=== PATIENT | female | born 1965 | race Two or more races ===

== ENCOUNTER 2023-07-20 12:02 | Emergency (ER) | payer SELFPAY ==
[~2023-07-20] VITALS: Ht 160 cm; Wt 90.0 kg
[2023-07-20 12:18] VITALS: BP 100/60; PULSE 99; RESP 18; TEMP 98.1
[2023-07-20] MEDS ORDERED: HYDROCODONE/ACETAMINOPHEN 5-325 MG TABLET PO ONE (14:00)
[2023-07-20] MEDS ORDERED: ACET-3385 PO (14:10)
[2023-07-20] MEDS ORDERED: IBUP-1492 PO (14:10)
== END 2023-07-20 14:21 | disposition home or self-care (01) ==
LOC: EMS 12:10
DX: S83.91XA Sprain of unspecified site of right knee, initial encounter (principal); X58.XXXA Exposure to other specified factors, initial encounter; Y93.89 Activity, other specified; Y92.89 Other specified places as the place of occurrence of the external cause; Y99.8 Other external cause status
CPT/HCPCS: 99283

== ENCOUNTER 2023-08-01 16:32 | Emergency (ER) | payer OTHER ==
[~2023-08-01] VITALS: Ht 160 cm; Wt 90.0 kg
[~2023-08-01 16:32] MED LIST: ACET-3385 PO; IBUP-1492 PO
[2023-08-01 16:41] VITALS: TEMP 98.3
[2023-08-01] MEDS ORDERED: ACETAMINOPHEN/CODEINE 300-30 MG TABLET PO ONE (19:45)
[2023-08-01] MEDS ORDERED: KETOROLAC TROMETHAMINE 60 MG/2 ML VIAL IM ONE (19:45)
[2023-08-01] MEDS ORDERED: IBUP-1554 PO (19:47)
[2023-08-01] MEDS ORDERED: ACET-2080 PO (19:47)
[2023-08-01 20:28] VITALS: BP 127/80; PULSE 80; RESP 16
== END 2023-08-01 20:32 | disposition home or self-care (01) ==
LOC: EMS 16:35
DX: S83.91XA Sprain of unspecified site of right knee, initial encounter (principal); X58.XXXA Exposure to other specified factors, initial encounter; Y93.89 Activity, other specified; Y92.89 Other specified places as the place of occurrence of the external cause; Y99.0 Civilian activity done for income or pay
CPT/HCPCS: 99283; 29505; 73562; 96372; J1885